=== PATIENT | female | born 1935 | race Caucasian/White ===

== ENCOUNTER 2017-03-20 14:25 | Emergency (ER) | payer OTHER, MEDICARE ==
[~2017-03-20] VITALS: Ht 157.5 cm; Wt 88.0 kg
[2017-03-20 15:08] LABS: ABSOLUTE BASOPHIL COUNT 0 /CUMM (0.0-0.2); ABSOLUTE EOSINOPHIL COUNT 0.2 /CUMM (0.0-0.7); ABSOLUTE GRANULOCYTE CT 6.3 /CUMM (1.4-6.5); ABSOLUTE LYMPH COUNT 1.3 /CUMM (1.2-3.4); ABSOLUTE MONOCYTE COUNT 0.8 /CUMM (0.10-0.60); BASOPHIL % 0.5 % (0.0-2.0); EOSINOPHIL % 1.9 % (0-5); GRANULOCYTE % 72.9 % (42.2-75.2); HEMATOCRIT 36.8 % (37-47); MEAN CORPUSCULAR HGB 28.9 PG (27.0-31.0); MEAN CORPUSCULAR HGB CONC 33.4 G/DL (33.0-37.0); MEAN CORPUSCULAR VOLUME 86.5 FL (81.0-99.0); PLATELET COUNT 228 /CUMM (130-400); RBC DISTRIBUTION WIDTH 16.5 % (11.5-14.5); RED BLOOD CELL CT 4.25 /CUMM (4.20-5.40); WHITE BLOOD CELL COUNT 8.6 /CUMM (4.8-10.8)
--- NOTE | 2017-03-20 15:18 | RADIOLOGY REPORT ---
EXAMINATION: XR CHEST CLINICAL INFORMATION: Shortness of breath. COMPARISON: Chest x-ray 03/06/2016 TECHNIQUE: 2 views of the chest were obtained. FINDINGS: Large hiatal hernia. Heart size normal. There are calcifications of the wall of aorta. Lungs are clear. No pleural effusion. No pulmonary vascular congestion. IMPRESSION: No acute change of chest. No congestive changes, no pulmonary vascular congestion.
--- NOTE | 2017-03-20 15:54 | ED GENERAL ADULT ---
History of Present Illness General Chief Complaint: General Adult Stated Complaint: ANDREW CROW, FOR EKG CHANGES AND CHEST XRAY Source: patient, family, PCP Exam Limitations: no limitations Vital Signs & Intake/Output Vital Signs & Intake/Output Vital Signs Date Time Temp Pulse Resp B/P B/P Pulse O2 O2 Flow FiO2 Mean Ox Delivery Rate 03/20 1953 96.0 81 18 145/96 94 Room Air 03/20 1608 Room Air Room Air 03/20 1600 97.4 73 20 152/78 96 Room Air Room Air 03/20 1434 97.4 82 18 174/92 98 Room Air Allergies Coded Allergies: NO KNOWN ALLERGIES (11/18/13) Reconcile Medications Aspirin (Ecotrin*) 81 MG TABLET.DR 1 TAB PO QAM HEART/BLOOD (Reported) Atorvastatin Calcium 20 MG TABLET 1 TAB PO QPM CHOLESTEROL (Reported) Carvedilol Phosphate (Coreg Cr) 10 MG CPMP.24HR 1 TAB PO QPM HEART/BP ( Reported) Cholecalciferol (Vitamin D3) (Vitamin D) (Unknown Strength) CAPSULE (Unknown Dose) PO DAILY SUPPLEMENT (Reported) Levothyroxine Sodium 50 MCG TABLET 1 TAB PO DAILY AC THYROID (Reported) Losartan Potassium 100 MG TABLET 1 TAB PO QAM BP (Reported) Multivit-Min/FA/Lycopen/Lutein (Centrum Silver Tablet) 0.4 MG-300 MCG-250 MCG TABLET 1 TAB PO DAILY SUPPLEMENT (Reported) Pantoprazole Sodium 40 MG TABLET. 1 TAB PO QAM GI (Reported) Ticagrelor (Brilinta) 90 MG TABLET 1 TAB PO BID BLOOD THINNER (Reported) Triage Note: 81 Y/O FEMALE SENT BY DR GARZA FOR EVAL OF SOB. PT STATES SHE HAS BEEN FEELING EXERTIONAL SOB FOR A FEW WEEKS WHICH PROMPTED MD VISIT TODAY. PT STATES DOCTOR HEARD "FLUID IN MY LUNGS AND SAID ONE LINE OF MY EKG WAS DIFFERENT". PT DNEIES PAIN. DENIES DIAPHORESIS. DENIES N/V/D. STATES BILATERAL EDEMA, L >R TAKEN FOR EKG / BLOODDRAW Triage Nurses Notes Reviewed? yes Onset: Gradual Duration: worse persistent since (2 WEEKS) Timing: recent history Injury Environment: home Severity: moderate Modifying Factors: Worsens With: other (EXERTION). HPI: Patient is an 81-year-old female presenting to the emergency department with chief complaint "I was sent in for an abnormal EKG.". Patient was seeing her primary care physician for multiple complaints. She had stents placed in November and since then she's had shortness of breath. She also reports chest pressure is worse with exertion since November. Her primary care physician sent her to the ER for evaluation of CHF. Patient does report increased swelling in the legs. She also reports left calf pain. Denies any coughing. She does report intermittent chest pressure. No headaches. No fevers or chills. No abdominal pain. No change in bowel or bladder habits. Denies any numbness or weakness. No back pain. She also reports that she went to her primary care physician so that she can get something to help her lose weight in her legs. (HEMANT DO) Past History Travel History Traveled to [place] past 21 day No Medical History Any Pertinent Medical History? 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 No (HEMANT DO) Review of Systems Review of Systems Constitutional: Reports: no symptoms. Comments Review of systems: See HPI, All other systems negative. Constitutional, no chills fever or weight loss HEENT: No visual changes no sore throat no congestion Cardiovascular: No palpitation , orthopnea Skin, no jaundice no rashes Respiratory: No dyspnea cough sputum or hemoptysis GI: No nausea no vomiting : No dysuria No hematuria Muscle skeletal: no back pain, no neck pain, Neurologic: No numbness no confusion Psych: No stress anxiety or depression,. Heme/endocrine: No bruising no bleeding no polyuria or polydipsia Immunology: No splenectomy or history of AIDS (HEMANT DO) Physical Exam Physical Exam General Appearance: well developed/nourished, no apparent distress, alert, awake , comfortable Comments: Well-developed well-nourished person in no acute distress HEENT: Pupils equally round and reactive to light and accommodation. Nose is atraumatic. External auditory canal and Tympanic membranes clear. Pharynx normal. No swelling or edema. Dry lips. Neck: Supple, Back: Nontender Cardiovascular: Regular rate and rhythms no murmurs rubs or gallops, normal JVP Respiratory: Chest nontender. No respiratory distress.breath sounds clear to auscultation bilaterally Abdomen: Soft, obese, nontender nondistended, no appreciable organomegaly. Normal bowel sounds. No ascites Extremity: Nonpitting edema appreciated bilaterally, positive left calf tenderness to palpation. Normal and equal pulses. No erythema or warmth. Neuro: Alert oriented x3 Skin: No appreciable rash on exposed skin, skin is warm and dry. Psych: Mood and affect is normal, memory and judgment is normal. Core Measures ACS in differential dx? Yes CVA/TIA Diagnosis: No Severe Sepsis Present: No Septic Shock Present: No (JUVENTINO ULRICH,HEMANT) Progress Differential Diagnoses I considered the following diagnoses in my evaluation of the patient: CHF, pneumonia, bronchitis, ACS, pulmonary embolus, viral syndrome Plan of Care: Orders Procedure Date/time Status TROPONIN LEVEL 03/20 1845 Complete EKG 03/20 1845 Active Add-on Test (ER Only) 03/20 1555 Active Add-on Test (ER Only) 03/20 1554 Active D-DIMER 03/20 1443 Complete B-TYPE NATRIURETIC PEP (BNP) 03/20 1440 Complete TROPONIN LEVEL 03/20 1431 Complete COMPREHENSIVE METABOLIC PANEL 03/20 1431 Complete CBC WITHOUT DIFFERENTIAL 03/20 1431 Complete EKG 03/20 1431 Active Laboratory Tests 03/20/17 1840: Troponin I < 0.01 03/20/17 1443: D-Dimer 386 H 03/20/17 1440: Anion Gap 10, Estimated GFR > 60, BUN/Creatinine Ratio 16.7, Glucose 97, Calcium 9.2, Total Bilirubin 0.8, AST 30, ALT 36, Alkaline Phosphatase 76, Troponin I < 0.01, [id number] Pept 582 H, Total Protein 6.4, Albumin 3.8, Globulin 2.6, Albumin/Globulin Ratio 1.5, CBC w Diff NO MAN DIFF REQ, RBC 4.25, MCV 86.5, MCH 28.9, RDW 16.5 H, MPV 9.0, Gran % 72.9, Lymphocytes % 14.9 L, Monocytes % 9.8 H, Eosinophils % 1.9, Basophils % 0.5, Absolute Granulocytes 6.3, Absolute Lymphocytes 1.3, Absolute Monocytes 0.8 H, Absolute Eosinophils 0.2, Absolute Basophils 0, PUBS MCHC 33.4 Diagnostic Imaging: Viewed by Me: Radiology Read. Discussed w/RAD: Radiology Read. CXR Impression: no acute abnormality Initial ED EKG: NSR 76 BPM, PVC Repeat EKG: changed (T FLATTENING IN V4-6) Comments: Patient R-rated dose of aspirin today along with her [place]. Patient has clear lungs, oxygen saturation within normal range, she has nonpitting edema in the large semis bilaterally with left calf pain. Pulses are intact. Patient was sent in to rule out CHF. She'll go for x-ray, CBC, CMP, BMP, troponin. Initial EKG shows nonspecific T-wave changes. 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 Armstrong. Patient does not want anything to help with her symptoms. Patient for follow-up results and imaging study results were no signs of CHF. BNP is 500. Age-adjusted d-dimer is negative. Bilateral Dopplers of the lower extremities negative. We'll repeat the troponin and EKG 4 hours from the first. Dr. Armstrong is aware. Dr. Armstrong was contacted after the second troponin came back negative. There was some nonspecific T-wave flattening in the lateral leads on the repeat EKG. Reports that she can follow-up with him in the office. Patient would like to go home. She is doing well cardiac rehabilitation. She'll return for any worsening symptoms or concerns. Patient cleared for discharge by cardiology. (HEMANT DO) Departure Departure Time of Disposition: 1945 Disposition: HOME OR SELF CARE Condition: Stable Clinical Impression Primary Impression: Leg edema Qualifiers: Laterality: bilateral Qualified Code: R60.0 - Localized edema Secondary Impressions: Dyspnea Qualifiers: Dyspnea type: unspecified Qualified Code: R06.00 - Dyspnea, unspecified Referrals: TARIQ BENNETT,GLADIS Dubon (PCP/Family) Krystal ARMSTRONG MD Additional Instructions: Follow-up with Dr. Armstrong on Thursday call to make appointment. Return for worsening symptoms or concerns. Departure Forms: Customer Survey General Discharge Information (HEMANT DO) PA/FARM REPORTER Co-Sign Statement Statement: ED Attending supervision documentation- [x] I saw and evaluated the patient. I have also reviewed all the pertinent lab results and diagnostic results. I agree with the findings and the plan of care as documented in the PA's/FARM REPORTER's documentation. [] I have reviewed the ED Record and agree with the PA's/FARM REPORTER's documentation. [] Additions or exceptions (if any) to the PAs/FARM REPORTER's note and plan are summarized below: [] (KATELYN ARAYA,TERRY Ogden) Critical Care Note Critical Care Note Critical Care Time: non-applicable (HEMANT DO)
--- NOTE | 2017-03-20 16:57 | ULTRASOUND REPORT ---
EXAMINATION: US TRIPLEX OF LOWER EXTREMITIES, BILATERAL CLINICAL INFORMATION: Bilateral lower extremity swelling and pain COMPARISON: None TECHNIQUE: Color-flow triplex imaging with spectral analysis and compression Doppler were performed on the lower extremities. FINDINGS: Respiratory variation, normal compression and augmented flow are noted throughout the lower extremities. The visualized common femoral vein, superficial femoral vein, profunda femoral vein, popliteal vein and midcalf peroneal and posterior tibial venous segments show no evidence of deep venous thrombosis. There is no Bauman's cyst. IMPRESSION: Normal triplex scan without evidence of deep venous thrombosis involving the lower extremities.
[2017-03-20] MEDS ORDERED: LEVOTHYROXINE50 MCG PO (17:37)
[2017-03-20] MEDS ORDERED: PANTOPRAZOLE SO40 M1 PO (17:38)
[2017-03-20] MEDS ORDERED: ATORVASTATIN CA20 M1 PO (17:39)
[2017-03-20] MEDS ORDERED: COREG CR10 M1 PO (17:39)
[2017-03-20] MEDS ORDERED: BRILINTA90 M1 PO (17:39)
[2017-03-20] MEDS ORDERED: LOSARTAN POTAS100 M1 PO (17:39)
[2017-03-20] MEDS ORDERED: ASPIRIN EC81 M1 PO (17:40)
[2017-03-20] MEDS ORDERED: VITAMIN D1000 UNI1 PO (17:41)
[2017-03-20] MEDS ORDERED: CENTRUM SILVER1 EAC3 PO (17:41)
--- NOTE | 2017-03-20 19:39 | Cons- Cardiology ---
General Information and HPI Consulting Request Date of Consult: 03/20/17 Requested By: Micki ULRICH Reason for Consult: LE edema; ? CHF Source of Information: patient, family Exam Limitations: no limitations History of Present Illness: 81 Y/O FEMALE SENT BY DR GARZA FOR EVAL OF SOB. PT STATES SHE HAS BEEN FEELING EXERTIONAL SOB FOR A FEW WEEKS WHICH PROMPTED MD VISIT TODAY. PT STATES DOCTOR HEARD "FLUID IN MY LUNGS AND SAID ONE LINE OF MY EKG WAS DIFFERENT". PT DNEIES PAIN. DENIES DIAPHORESIS. DENIES N/V/D. STATES BILATERAL EDEMA, L >R Allergies/Medications Allergies: Coded Allergies: NO KNOWN ALLERGIES (11/18/13) Home Med List: Aspirin (Ecotrin*) 81 MG TABLET.DR 1 TAB PO QAM HEART/BLOOD (Reported) Atorvastatin Calcium 20 MG TABLET 1 TAB PO QPM CHOLESTEROL (Reported) Carvedilol Phosphate (Coreg Cr) 10 MG CPMP.24HR 1 TAB PO QPM HEART/BP ( Reported) Cholecalciferol (Vitamin D3) (Vitamin D) (Unknown Strength) CAPSULE (Unknown Dose) PO DAILY SUPPLEMENT (Reported) Levothyroxine Sodium 50 MCG TABLET 1 TAB PO DAILY AC THYROID (Reported) Losartan Potassium 100 MG TABLET 1 TAB PO QAM BP (Reported) Multivit-Min/FA/Lycopen/Lutein (Centrum Silver Tablet) 0.4 MG-300 MCG-250 MCG TABLET 1 TAB PO DAILY SUPPLEMENT (Reported) Pantoprazole Sodium 40 MG TABLET.DR 1 TAB PO QAM GI (Reported) Ticagrelor (Brilinta) 90 MG TABLET 1 TAB PO BID BLOOD THINNER (Reported) Past History Travel History Traveled to [place] past 21 day No Medical History Neurological: CVA EENT: NONE Cardiovascular: myocardial infarction, STENTS X 4 Respiratory: NONE Gastrointestinal: NONE Hepatic: NONE Renal: NONE Musculoskeletal: NONE Psychiatric: NONE Endocrine: NONE Blood Disorders: NONE Cancer(s): NONE GAUGE OPERATOR/Reproductive: 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 Surgical History Surgical History: non-contributory Family History Relations & Conditions If Any: BROTHER FHx: stroke MOTHER FH: heart disease FATHER FH: heart disease SISTER FHx: stroke Psychosocial History Services at Home: None Exam & Diagnostic Data Vital Signs and I&O Vital Signs Date Time Temp Pulse Resp B/P B/P Pulse O2 O2 Flow FiO2 Mean Ox Delivery Rate 03/20 1608 Room Air Room Air 03/20 1600 97.4 73 20 152/78 96 Room Air Room Air 03/20 1434 97.4 82 18 174/92 98 Room Air Intake & Output 03/20 1600 03/20 0800 03/20 0000 03/19 1600 03/19 0800 03/19 0000 Intake Total Output Total Balance Patient 194 lb Weight Weight Reported by Patient Measurement Method Diagnostic Data EKG Results Unchanged CXR Results No evidence of CHF. Assessment/Plan Assessment/Plan Assessment: 1. Dyspnea 2. Mild LE edema with no significant pitting 3. Known CAD S/P recent stent Recommendations: - At the present time there is no overt evidence of CHF. - COntinue current medication - Await results of LE venous doppler prior to any further decisions - COntinue cardiac rehab - If stable and no further issues, followup with me in the office next week. Consult Acknowledgment - Thank you for your consult request.
[2017-03-20 19:53] VITALS: BP 145/96
== END 2017-03-20 19:56 ==
LOC: ERH 14:25
PROVIDERS: Emergency Medicine
DX: R60.9 Edema, unspecified (principal); R06.00 Dyspnea, unspecified
CPT/HCPCS: 93005; 93010; 93970